=== PATIENT | male | born 1950 | race Caucasian/White ===

== ENCOUNTER → 2017-01-05 | Day surgery (SDC) | payer MEDICARE, OTHER ==
[~2017-01-05] MED LIST: ASPIRIN EC81 M1 PO; ASPIRIN81 M2 PO; B COMPLEX1 EACH PO; DOCUSATE SODIU100 MG PO; FISH OIL 1,2001 CAP PO; FISH OIL 1,2001 EAC1 PO; FLOMAX0.4 M1 PO; GLUCOSAMINE &1 EAC1 PO; MACROBID100 MG PO; NON-ASPIRIN PA325 M1 PO; VITAMIN D1000 UNI1 PO
--- NOTE | ~2017-01-05 | OR ---
Unit #: [id number] #: [id number] Patient: ADOLFO EUCEDA [id number] [facility] [address] [facility] [place] [facility]. [place], [place] [address] [id number] MR#: [id number] NAME: ADOLFO EUCEDA ROOM: Date of Procedure: 01/05/2017 Admission Date: 01/05/2017 Surgeon: Tyshawn Ly M.D. : 1950 Attending Physician: Tyshawn Ly M.D. Referring Physician: Tyshawn Ly M.D. Primary Care Physician: Kristel Menezes M.D. PROCEDURE OPERATIVE NOTE PREOPERATIVE DIAGNOSIS Uncomfortable left inguinal hernia and incarcerated umbilical hernia. POSTOPERATIVE DIAGNOSIS Incarcerated umbilical hernia and direct left inguinal hernia. PROCEDURE PERFORMED Open repair umbilical hernia with an 8 cm Ventralex patch and open repair of left inguinal hernia with PerFix plug mesh. ANESTHESIA General endotracheal. ESTIMATED BLOOD LOSS Less than 20 mL. INDICATION FOR STUDY The patient is a 66-year-old gentleman presenting to the office with a painful bulge in the left inguinal region that had been increasing over time. It was causing him discomfort at work. On examination he had a reducible left inguinal hernia. Right inguinal canal was normal. He also had an incidental incarcerated umbilical hernia. PROCEDURE The patient was admitted to [facility], positively identified and transported to the operating room. After induction of general endotracheal anesthesia he received IV antibiotics per SKIP protocol. His abdominal wall hair was clipped and he was prepped and draped in the usual sterile fashion. A transverse incision underneath the umbilicus was performed. The umbilical skin was from the hernia sac. The hernia sac was opened at the level of the fascia and the hernia sac and some incarcerated omentum were excised. I palpated through the defect and there were no other palpable defects. An 8 cm Ventralex patch was placed. It was secured circumferentially with 0 Ethibond interrupted sutures. Once the mesh was adequately positioned and secured and the fascia closed, 20 mL of 0.5% Marcaine were infiltrated in the fascia and soft tissue. An umbilicoplasty was performed. Soft tissue was closed with 3-0 Vicryl interrupted suture and the skin was reapproximated with 4-0 Monocryl running subcuticular closure and Dermabond skin adhesive. I then went to the left inguinal canal and an incision in the skin line was made over the left inguinal canal. I dissected down through the soft tissue, exposing external oblique aponeurosis. The aponeurosis direct had fibers to include the external ring. Ilioinguinal nerve was identified Unit #: [id number] #: [id number] Patient: ADOLFO EUCEDA and preserved. Core structure elevated from the floor of the inguinal canal. I carefully evaluated the spermatic cord and there was no indirect hernia sac. He had a large, but not incarcerated, direct hernia. Using 0 Ethibond interrupted sutures a Bassini type repair of the floor of the inguinal canal was performed from the conjoined tendon shelving agent inguinal ligament. Once the floor was closed, the internal ring was tightened up, Keyhole on-lay mesh was secured to the pubic tubercle and stretched across the inguinal canal and the tails were wrapped around the spermatic cord as it exited the internal ring. The mesh was secured to the muscular fascial tissues superior and lateral to the internal ring. The limbs were then secured with shelving agent into the ligament laterally. A relaxing incision was made in the rectus sheath and then the medial edge of the mesh was secured to the rectus sheath. The cord was placed back in the anatomic position. Ten mL of local anesthetic were infiltrated. The external oblique aponeurosis was reapproximated. The soft tissue was closed with 2-0 Vicryl running suture. The skin was reapproximated with 4-0 Monocryl running subcuticular closure and Dermabond skin adhesive. Sponge and needle counts were corrected times three. The patient tolerated the procedure well and was transported to recovery in stable condition. Findings and postoperative instructions were discussed with his son. Dictated by... Fish Astorga TD: 01/05/2017 13:03 JOB #: [id number] PROCEDURE OPERATIVE NOTE Page 1 of 1 X Tyshawn Ly MD X PROCEDURE OPERATIVE NOTE
--- NOTE | ~2017-01-05 | EKG ---
PATIENT: ADOLFO EUCEDA UNIT #: [id number] Ventricular Rate: 56 BPM Atrial Rate: 56 BPM P-R Interval: 212 ms QRS Duration: 86 ms Q-T Interval: 404 ms QTC Calculation(Bezet): 389 ms P [place]: 15 degrees Calculated R [place]: 16 degrees Calculated T [place]: 48 degrees Diagnosis Line: Sinus bradycardia with 1st degree A-V block Diagnosis Line: Septal infarct , age undetermined Diagnosis Line: Abnormal ECG Diagnosis Line: No previous ECGs available Diagnosis Line: Confirmed by SHIRIN AYON MD ([id number]) on Diagnosis Line: 01/05/2017 4:38:29 PM INTERPRETING MD: GABO PRADO
[2017-01-05 08:33] LABS: BASOPHIL% 0.8 % (0-2.5); EOSINOPHIL# 0.2 X10e3 (0-0.7); EOSINOPHIL% 3.7 % (0.0-7.0); HEMOGLOBIN 15.6 gm/dL (13.0-16.0); LYMPHOCYTE# 1.4 X10e3 (1.0-3.5); LYMPHOCYTE% 32.4 % (17.0-45.0); MEAN CELL VOLUME 97.1 FL (83-96); MEAN CORPUSCULAR HEMOGLOBIN 32.9 PG (28-34); MEAN CORPUSCULAR HGB CONC 33.9 g/dL (30-36); MEAN PLATELET VOLUME 7.8 FL (6.5-11.5); MONOCYTE# 0.5 X10e3 (0-1.0); MONOCYTE% 10.5 % (3.0-12.0); NEUTROPHIL# 2.3 X10e3 (1.5-7.1); NEUTROPHIL% 52.6 % (40-75); PLATELET COUNT 180 X10e3 (140-420); RED BLOOD COUNT 4.74 X10e (3.90-5.60); RED CELL DISTRIBUTION WIDTH 13.8 % (11.0-15.5); WHITE BLOOD COUNT 4.3 X10e3 (4.0-10.5)
[2017-01-05 08:34] LABS: DIFF IND NO
[2017-01-05 08:56] LABS: BUN/CREATININE RATIO 21.25; CALCIUM SERUM 9.1 mg/dL (8.4-10.2); CREATININE SERUM 0.8 mg/dL (0.6-1.4); GLOM FILT RATE Estimated 93.1 mL/min (>60); POTASSIUM 4.1 mmol/L (3.5-5.1)
== END | disposition home or self-care (01) ==
LOC: CSUR 07:45
PROVIDERS: Specialist
DX: K42.0 Umbilical hernia with obstruction, without gangrene (principal); K40.90 Unilateral inguinal hernia, without obstruction or gangrene, not specified as recurrent; I10 Essential (primary) hypertension; Z85.820 Personal history of malignant melanoma of skin; Z87.891 Personal history of nicotine dependence; Z79.82 Long term (current) use of aspirin; Z79.899 Other long term (current) drug therapy
CPT/HCPCS: 80048; 85025; 93005; C1781; J0330; J0690; J1885; J2250; J2405; J2710; J3010

== ENCOUNTER 2017-01-22 04:50 | Inpatient (IN) | payer MEDICARE, OTHER ==
--- NOTE | ~2017-01-22 | CO ---
Unit #: [id number] #: [id number] Patient: ADOLFO EUCEDA [id number] [facility]. [place], [place] [address] [id number] I MR#: [id number] NAME: ADOLFO EUCEDA ROOM: 55 Age: 67 Sex: M Admission Date: 01/22/2017 : 1950 Attending Physician: Barbara Vega M.D. Primary Care Physician: Kristel Menezes M.D. Consultation Date: 01/22/2017 CONSULTATION REPORT REASON FOR CONSULTATION Acute renal failure and massive postoperative urinary retention. HISTORY OF PRESENT ILLNESS This 66-year-old man was transferred after initial evaluation in [facility] early this morning for abdominal pain and elevated creatinine. He had a left plug mesh inguinal herniorrhaphy and umbilical hernia repair on 01/05/2017 and was discharged home only to have progressive small frequent urinations and dribbling. He was taking hydrocodone. He did note abdominal distention and ultimately presented for evaluation where he was noted to have initially a creatinine of 26 and potassium of 8 according to the record. Reported 5.8 L was drained after initial Sawyer catheter placement and this was initially bloody. He immediately reported improvement. CT reportedly showed bilateral hydronephrosis without stones. His father had a TUR of prostate, but he has had no significant pre-hospital symptoms himself. He has typically nocturia x1. No daytime frequency, urgency, hesitancy, or intermittency, although possibly occasional trouble emptying. He reports normal PSAs with primary care. He has no history of gross hematuria, urinary infection, or stone disease. He smoked for about 10 years in his youth, not heavily. PAST MEDICAL HISTORY PAST SURGICAL HISTORY Herniorrhaphies and melanoma excisions. MEDICATIONS On admission, low-dose aspirin, fish oil, vitamins. ALLERGIES None known. FAMILY HISTORY Negative for prostate cancer. SOCIAL HISTORY Nonsmoker as noted. REVIEW OF SYSTEMS Some loose stool from postoperative cathartics and as per HPI, otherwise negative except system review. Unit #: [id number] #: [id number] Patient: ADOLFO EUCEDA PHYSICAL EXAMINATION GENERAL: The patient is healthy appearing, pleasant, alert, sitting up in his chair with his catheter draining yellow, but blood-tinged urine. ABDOMEN: Normal postoperative, somewhat ecchymotic, well-healing incisional scars. : Phallus normal. Testes and epididymides normal descended. Digital exam; normal anus and sphincter tone. 40 g, benign. DIAGNOSTIC STUDIES LABORATORY RESULTS: Creatinine 6.7 at this time down from 9.6 just 3 hours prior, BUN 93, potassium 5.2. Liver function tests are normal. Hemoglobin 14.1, WBC 7.9. Urinalysis; innumerable rbc's, 5 to 10 wbc's, no bacteria. Urine culture has been sent. IMPRESSION 1. Sustained subacute urinary retention multifactorial postoperative with secondary dramatic obstructive acute kidney injury. Fortunately, a rapid reversal of renal indices with catheter drainage is occurring and he appears to have suffered no important metabolic complications. 2. Benign prostatic hypertrophy with no pre-hospital symptoms suggests a transurethral resection of prostate would be overly aggressive at this point, but certainly with medical management, the patient will need to be watched closely especially given the possibility of bladder injury from such severe distention. PLAN Sawyer to remain until at least jai renal indices and at least 3 additional days. We will start tamsulosin b.i.d. tomorrow. We will follow for timing of voiding trial and plan. Close followup with postvoid residuals initially. Thank you, Cherelle Chavez and Barbara for the consultation. Dictated by... Tyshawn Logan M.D. [facility]/ashish TD: 01/23/2017 05:08 JOB #: [id number] Cherelle Friedman M.D. CONSULTATION REPORT Page 1 of 1 X Tyshawn Logan MD CONSULTATION REPORT
--- NOTE | ~2017-01-22 | EKG ---
PATIENT: ADOLFO EUCEDA UNIT #: [id number] Ventricular Rate: 57 BPM Atrial Rate: 57 BPM P-R Interval: 186 ms QRS Duration: 70 ms Q-T Interval: 434 ms QTC Calculation(Bezet): 422 ms P [place]: 59 degrees Calculated R [place]: 39 degrees Calculated T [place]: 56 degrees Diagnosis Line: Sinus bradycardia Diagnosis Line: Possible Left atrial enlargement Diagnosis Line: Septal infarct (cited on or before 05-JAN-2017) Diagnosis Line: Abnormal ECG Diagnosis Line: When compared with ECG of 05-JAN-2017 08:26, Diagnosis Line: No significant change was found Diagnosis Line: Confirmed by SHIRIN AYON MD ([id number]) on Diagnosis Line: 01/23/2017 4:24:28 PM INTERPRETING MD: GABO PRADO
--- NOTE | ~2017-01-22 | HP ---
Unit #: [id number] #: [id number] Patient: ADOLFO HANSEN [id number] [facility]. [place], [place] [address] [id number] I MR#: [id number] NAME: ADOLFO HANSEN ROOM: 557 Age: 66 Sex: M Admission Date: 01/22/2017 : 1950 Attending Physician: Barbara Vega M.D. Primary Care Physician: Kristel Menezes M.D. HISTORY AND PHYSICAL CHIEF COMPLAINT Abdominal pain, abnormal creatinine. HISTORY OF PRESENT ILLNESS Mr. Hansen is a really nice 66-year-old male who presents to the ER for above. The patient underwent elective left inguinal hernia repair with subsequent plug mesh and open repair of umbilical hernia on January 05, 2017, per Dr. Ly. The patient states he was discharged home the same day. Beginning the day of surgery and for the two weeks postop, the patient has had increasing difficulty urinating and using the restroom. He was initially taking hydrocodone at home for the pain associated with the surgery, although he states the pain was not severe and he was concerned perhaps hydrocodone was contributing to his symptoms, thus, he stopped using it. He started taking Senna S and had loose stools and then stopped taking this as well. However, he noticed he was still having difficulty urinating. He would strain to urinate and had minimal urine output. He denies any episodes of incontinence. He was seen in followup by Dr. Ly as an outpatient but, at that followup, everything appeared to be stable. However, the patient developed increasing fatigue, poor appetite, poor taste, abdominal distension and subsequently presented to [facility] emergency department last night. Upon presentation, the patient was mildly hypertensive with a blood pressure of 160 to 170 systolic. Blood work revealed a creatinine of 26 in addition to some hyperkalemia with a potassium of 8. Sodium was normal. He was also found to have a high metabolic acidosis with a bicarbonate of 7. He was given calcium gluconate, dextrose, insulin, Albuterol and potassium is now down to 5.7. He was referred here for further evaluation. The patient states his abdominal pain is significantly improved after placement of Sawyer catheter in the emergency department at [facility]. The patient had 5,800 mL of urine come out immediately upon placing a Sawyer catheter, all of which was bloody. The patient states his abdominal pain and distension are significantly improved but he is still complaining of a lot of fatigue and just feeling overall in malaise. The patient denies any urinary trouble prior to surgery. He denies any nocturia prior to surgery. I will note a CT scan of the abdomen and pelvis was done ini the emergency department and revealed some BPH, bilateral hydronephrosis and bilateral hydroureter but there was no evidence of obstructive stone. PAST MEDICAL HISTORY Melanoma status post excision x2. PAST SURGICAL HISTORY 1. Melanoma excision x2. 2. Open repair of umbilical hernia with 8 cm Ventralex patch on January 05, Unit #: [id number] #: [id number] Patient: ADOLFO HANSEN 2016. 3. Open repair of left inguinal hernia with PerFix plug mesh on January 05, 2017. These were done by Dr. Ly. SOCIAL HISTORY The patient does have an approximately 10 to 12 year pack year history of smoking but quit about 35 to 40 years ago. No alcohol use. No illicit drug use. He works in [email or web address]. He does have a son who is not present during examination. FAMILY HISTORY Coronary artery disease in patient's father. The patient's father from acute leukemia. Mom is age 90 and in good health, according to the patient. ALLERGIES No known drug allergies. HOME MEDICATIONS 1. Aspirin 81 mg daily. 2. Fish oil 1,000 mg daily. 3. A daily multivitamin. 4. The patient was also taking vitamin D. However, he states that he is not taking any of these medications since surgery. He denies any [id number] NSAID use. REVIEW OF SYSTEMS Generalized malaise. He had been gaining weight over the last several days but again had significant urinary retention. He has had poor appetite and poor taste. He denies any chest pain. He denies any nausea or vomiting. He denies any reflux. He denies any hematuria prior to the onset of symptoms. He has not had dysuria but has had significant decreased urine output. No new rashes. No falls. No tingling, numbness of extremities or face. Otherwise, a 10-point review of systems is reviewed and is negative. PHYSICAL EXAMINATION GENERAL APPEARANCE: Patient is awake. He is alert. He is oriented x3 and very pleasant. VITAL SIGNS: Please refer to chart. HEENT: Pupils equally round and reactive to light bilaterally. Anicteric sclerae. No conjunctival pallor. Oropharynx is significantly dry mucous membranes bilaterally. No erythema or exudate. NECK: Supple. No lymphadenopathy. No thyromegaly. No JVD. HEART: Regular rate and rhythm without murmur, rub or gallop. LUNGS: Clear to auscultation bilaterally without wheezes, rhonchi or crackles. ABDOMEN: Soft and mildly tender particularly over the bladder but without guarding or rebound. It is nondistended. Positive bowel sounds. GENITOURINARY: Normal appearing testicles and penis. The patient does have a Sawyer catheter in place draining bright red urine. EXTREMITIES: No cyanosis, clubbing or edema. Pedal pulses (1) . SKIN: Warm, moist, is without rash. There is bruising over the right and left lower quadrants of the skin. The incision site for the ventral hernia repair and the right inguinal hernia repair, however, are intact Unit #: [id number] #: [id number] Patient: ADOLFO HANSEN without any drainage. NEUROLOGIC: Cranial nerves II-XII intact. Sensation, strength and deep tendon reflexes are grossly normal. MUSCULOSKELETAL: No significant joint abnormalities noted upon examination. PSYCHIATRIC: Again, alert and oriented x3. No suicidal or homicidal ideation. DIAGNOSTIC STUDIES LABORATORY: Lab work done at [facility], namely CBC, reveals a WBC count of 7.2, hemoglobin 13.4, platelet count 239,000. Differential reveals 86% neutrophils. CMP at that time reveals a sodium of 142, potassium of 8 initially at 12:40 a.m., chloride 109, bicarb 7, BUN 195, creatinine 26, glucose 92. LFTs were normal. AST was low at 10. Repeat potassium done at approximately 3:30 a.m. was down to 5.7 but the rest of the panel was not repeated. Lipase was 202. Magnesium 2.9. proBNP 464. Urinalysis revealed a large amount of occult blood but was otherwise negative for infection with trace bacteria. IMAGING: CT scan of the abdomen and pelvis without IV contrast done in the emergency department at [facility] reveals moderate bilateral hydronephrosis and hydroureter without radiopaque obstructive stone. There is a mild amount of stranding around the rectum and moderate bladder wall thickening. A posterior bladder diverticulum is noted and mild enlargement of the prostate was noted. CARDIOVASCULAR: EKG done here since presentation reveals normal sinus rhythm. QT interval 422. There is a Q wave present in V1 and V2. No acute ST or T wave abnormalities, however. ASSESSMENT 1. Acute on chronic urinary retention postoperatively since January 05, 2017, question anesthesia induced now status post Sawyer catheter placement with 5,000 mL of urine. 2. Acute kidney injury secondary to urinary retention. 3. High anion gap metabolic acidosis likely uremic in origin. 4. Hematuria likely secondary to bladder distension. 5. Benign prostatic hypertrophy. 6. Recent ventral and left inguinal hernia repair. 7. Abnormal EKG. 8. Hyperkalemia with repeat blood work pending. PLAN 1. We will admit patient to inpatient on telemetry given his hyperkalemia. 2. We will consult Urology regarding patient's urinary retention. We will continue Sawyer catheter for now and place on IV fluids given I anticipate he will have a significant postobstructive diuresis. We will only provide clears for now until we determine whether there is any urologic procedures planned. 3. We will consult Dr. Zamarripa regarding patient's acute kidney injury given I anticipate he will develop some electrolyte abnormalities as his creatinine, hopefully, will continue to improve. We will obtain spot urine sodium, urine creatinine, urine eosinophils and BMPs every six hours. 4. We will follow metabolic acidosis. IV fluids will contain bicarb and, of course, these can be adjusted per Renal's recommendation. 5. We will monitor hematuria as well. We will obtain urine culture. Unit #: [id number] #: [id number] Patient: ADOLFO HANSEN 6. I will ask Dr. Ly to follow the patient given his recent ventral and left inguinal hernia repair, though these appear to be healing well without any complication from surgery. 7. SCDs for DVT prophylaxis for now given his hematuria. Dictated by Barbara Vega M.D. [facility]/christian TD: 01/22/2017 10:46 JOB #: [id number] HISTORY AND PHYSICAL Page 1 of 1 X Barbara Vega MD X HISTORY AND PHYSICAL
--- NOTE | ~2017-01-22 | DS ---
Unit #: [id number] #: [id number] Patient: ADOLFO HANSEN [id number] [place], [place] [address] [id number] MR#: [id number] NAME: ADOLFO HANSEN ROOM: 55 Age: 67 Sex: M Admission Date: 01/22/2017 : 1950 Discharge Date: 01/24/2017 Attending Physician: Barbara Vega M.D. Primary Care Physician: Kristel Menezes M.D. DISCHARGE SUMMARY PRINCIPAL DIAGNOSES 1. Acute kidney injury secondary to obstructive uropathy: Discharge creatinine 0.9. 2. Acute urinary retention following anesthesia on January 05, 2017, now status post Sawyer catheter placement. 3. Hyperkalemia secondary to acute kidney injury, now resolved. 4. High anion gap metabolic acidosis secondary to uremia, now resolved. 5. Hematuria secondary to Sawyer catheter trauma. 6. Mild hyperkalemia, now resolved. 7. Hypomagnesemia. 8. Hypophosphatemia. 9. Mild protein malnutrition. 10. Recent left inguinal and ventral hernia repair. CONSULTANTS 1. Dr. Logan - Urology. 2. Dr. Zamarripa - Nephrology. PROCEDURES None. CLINICAL HISTORY/HOSPITAL COURSE Mr. Hansen is a very nice 67-year-old male who initially presented to [facility] emergency department with abdominal pain and was found to have a creatinine of 26. The patient had a Sawyer catheter placed at [facility] with immediate removal of 6 L of urine. He was transferred to this facility given he had recently undergone hernia repair and has had bladder symptoms at that time. Please refer to H and P for further details. The patient was maintained on Sawyer catheter and Dr. Logan was consulted. Patient continued to have significant diuresis for which he was placed on IV fluids. I discussed the case with Dr. Logan's partner, Dr. Gonzalez, earlier today and, given the patient had about two weeks of urinary retention, the plan is for him to be discharged home with a Sawyer catheter, for patient to followup with Dr. Logan later this week in the office at which time Sawyer catheter can be removed and urodynamic studies can be done. I will note patient does have some BPH noted on CT scan done at [facility]. He has been placed on Flomax. He had no urinary symptoms prior to surgery and perhaps this is anesthesia-induced. Again, further studies to be done as an outpatient. As noted above, the patient has significantly elevated creatinine upon presentation. However, will place on a Sawyer catheter. Creatinine is now Unit #: [id number] #: [id number] Patient: ADOLFO HANSEN completely normalized at 0.9. Associated acidosis and electrolyte abnormalities have been corrected under the care of nephrology. The patient is otherwise today clinically stable and will be discharged home again with Sawyer catheter. DISCHARGE CONDITION Stable. DISCHARGE STATUS Discharge to home with Sawyer catheter. DISCHARGE MEDICATIONS 1. Flomax 0.4 mg b.i.d. 2. Glucosamine and chondroitin, one tablet daily. 3. Aspirin 81 mg daily. 4. Vitamin B complex, one tablet daily. 5. Vitamin D 1000 units p.o. daily. 6. Fish oil 1200 mg daily. DISCHARGE INSTRUCTIONS Patient instructed to follow a regular diet. He can increase his activity as tolerated. Again, will maintain Sawyer catheter. FOLLOWUP The patient will follow up with Dr. Logan for appointment later the week of January 25 and will need urodynamic studies in the office. Time spent on discharge - 36 minutes. Dictated by... Barbara Vega M.D. [facility]/luis enrique TD: 01/25/2017 08:20 JOB #: [id number] DISCHARGE SUMMARY Page 1 of 1 X Barbara Vega MD X DISCHARGE SUMMARY
--- NOTE | ~2017-01-22 | CO ---
Unit #: [id number] #: [id number] Patient: ADOLFO HANSEN [id number] [facility] [address] [facility]. [place], [place] [address] [id number] I MR#: [id number] NAME: ADOLFO HANSEN ROOM: 557 Age: 67 Sex: M Admission Date: 01/22/2017 : 1950 Attending Physician: Barbara Vega M.D. Primary Care Physician: Kristel Menezes M.D. Consultation Date: 01/22/2017 CONSULTATION REPORT REASON FOR CONSULTATION Acute kidney injury and hyperkalemia. HISTORY OF PRESENT ILLNESS Mr. Hansen is a 66-year-old gentleman, currently confused, who is status post left inguinal and umbilical hernia repair here at [facility] on 01/05/2017. Again, the patient is confused this morning and family is not present. Most of the history was obtained from the chart. Following the surgery, the patient apparently has been having trouble with urination. He does not take much in the way of medications at home and was using some hydrocodone for pain. Apparently, he became more and more weak and fatigued and his appetite worsened. He denied to me this morning any nausea or vomiting. He also apparently developed some abdominal distention. Last night, he presented to the emergency room at [facility] with these complaints and was found to have grossly abnormal labs with a BUN and creatinine of 195 and 2.6 with a potassium of 8 and a bicarb of just 7. He was treated medically for the hyperkalemia. CT scan revealed urinary retention and hydronephrosis and he had a Sawyer catheter placed and it has drained almost 6 L since that was placed according to the notes. His urine is bloody. He denies any chest pain or shortness of breath to me. His abdominal discomfort is better after the catheter placement. No fevers or chills. He denies the use of any NSAIDs at home. PAST MEDICAL HISTORY Significant for history of melanoma. PAST SURGICAL HISTORY Melanoma excision x2 and then the recent hernia repairs. HOME MEDICATIONS Hydrocodone p.r.n. Prior to the surgery, he was taking baby aspirin, fish oil, glucosamine, chondroitin sulfate, and some vitamins. ALLERGIES He has no known drug allergies. FAMILY HISTORY There is a family history of heart disease and leukemia. No family history of kidney disease or dialysis. SOCIAL HISTORY The patient quit smoking many years ago. He drinks alcohol socially. No drug use. He works at [employer]. Unit #: [id number] #: [id number] Patient: ADOLFO HANSEN REVIEW OF SYSTEMS A complete 12-point review of systems was attempted, but simply difficult to obtain due to his mild confusion. He denies any headaches or dizziness. No nosebleed. He does complain of a dry mouth. No chest pain or palpitations. No cough or hemoptysis. No bright red blood per rectum or melena. He is noted to have some swelling. No rashes or itching. No night sweats or hot flashes. No intolerance to heat or cold. No other bleeding other than hematuria. Unless otherwise indicated, the review of systems was negative. PHYSICAL EXAMINATION VITAL SIGNS: Vitals here are pending and defer you to the chart once they were finalized. The only thing at this point is a pulse of 57. GENERAL: This is a somewhat confused 66-year-old gentleman, very pleasant, lying nearly flat, in no acute distress. HEENT: Head is atraumatic and normocephalic. Eyes show pink conjunctivae with no scleral icterus. No nasal drainage or nosebleed. Oropharynx is dry. No thrush. NECK: Shows no rigidity, no JVD. HEART: Bradycardic, but regular with no murmur or rub appreciated. LUNGS: Clear with no wheezing or rhonchi. Breathing is nonlabored. ABDOMEN: Soft with some very mild postop tenderness. Bowel sounds are present. He does have healing incisions from the hernia repair. No bladder distention at this time. EXTREMITIES: No lower extremity clubbing or cyanosis. He does have 1+ ankle edema bilaterally. SKIN: Dry without rashes. GENITOURINARY: Sawyer catheter is in place with bloody urine. MUSCULOSKELETAL: No joint effusions noted. NEUROLOGICAL: Cranial nerves are grossly intact with no gross motor deficits. LYMPHATIC: There is no neck or cervical lymphadenopathy. PSYCHIATRIC: Mood and affect appeared normal, but again he does seem to be a little confused. DIAGNOSTIC STUDIES LABORATORY RESULTS: Labs that are back so far here at [facility]. [facility], INR was 1.1. CBC was unremarkable with a hemoglobin of 14 and platelet count 252. Initial chemistry at [facility] showed a sodium of 142, potassium of 8, chloride 109, bicarb 7, glucose 92, BUN 195, creatinine 2.6. Notes on admissions state that his potassium had come down to 5.7 before [facility]. Again, repeat chemistry here is pending. Urinalysis there at [facility] did show large blood in the absence of any signs of infection with no protein present. CBC at [facility] was also unremarkable. To confirm, I did find at 3:30 in the morning, potassium level of 5.7 down from 8. IMAGING STUDIES: I do see a CT scan report that showed moderate bilateral hydronephrosis likely secondary to bladder outlet obstruction. No obstructive stones seen. ASSESSMENT AND PLAN 1. Acute kidney injury. This looks to be due to obstructive uropathy and a Sawyer catheter has been placed with excellent urine output. We are awaiting his repeat chemistry and hope for improvement, otherwise we may have to consider dialysis for his renal insufficiency and electrolyte abnormalities. We will continue him on some IV fluids as we would expect a postobstructive diuresis. Labs are ordered every 6 hours by Unit #: [id number] #: [id number] Patient: ADOLFO HANSEN and we will have those called to us. 2. Hyperkalemia. Recheck was better after treatment in the emergency room and we will follow up his chemistry here. 3. Metabolic acidosis, which is anion gap in nature. This is due to his renal insufficiency and I will be putting him on a bicarbonate drip and monitoring his acidosis levels. 4. Hypertension. p.r.n. hydralazine has been ordered. This is likely due to his renal insufficiency unless he has underlying undiagnosed hypertension. 5. Obstructive uropathy with Sawyer catheter in place, now on Flomax with Urology consult in place. 6. Hematuria. Cultures pending, but his white blood cell count is normal, and I do not see any documentation of a fever. 7. Status post hernia repair with Surgery due to see. I would like to thank Dr. Friedman for this consult and the opportunity to participate in evaluation and care of Mr. Hansen. Dictated by... Misael Zamarripa Jr., M.D. JARRED/ashish TD: 01/23/2017 22:01 JOB #: [id number] CONSULTATION REPORT Page 1 of 1 X Misael Zamarripa MD CONSULTATION REPORT
[~2017-01-22 04:50] MED LIST changes: -ASPIRIN81 M2 PO; -B COMPLEX1 EACH PO; -DOCUSATE SODIU100 MG PO; -FISH OIL 1,2001 CAP PO; -FLOMAX0.4 M1 PO; -GLUCOSAMINE &1 EAC1 PO; -MACROBID100 MG PO; -NON-ASPIRIN PA325 M1 PO; -VITAMIN D1000 UNI1 PO
[2017-01-22 11:13] LABS: HEMATOCRIT 42.6 % (38.0-50.0); HEMOGLOBIN 14.1 gm/dL (13.0-16.0); MEAN CELL VOLUME 98.7 FL (83-96); MEAN CORPUSCULAR HEMOGLOBIN 32.7 PG (28-34); MEAN CORPUSCULAR HGB CONC 33.1 g/dL (30-36); MEAN PLATELET VOLUME 8.1 FL (6.5-11.5); RED BLOOD COUNT 4.31 X10e (3.90-5.60); RED CELL DISTRIBUTION WIDTH 13.5 % (11.0-15.5); WHITE BLOOD COUNT 7.9 X10e3 (4.0-10.5)
[2017-01-22 11:26] LABS: INR 1.1; PARTIAL THROMBOPLASTIN TIME 30.8 SECONDS (23.5-31.3)
[2017-01-22 12:04] LABS: ALBUMIN SERUM 3.9 g/dL (3.5-5.0); BILIRUBIN,TOTAL 0.8 mg/dL (0.2-2.0); CALCIUM SERUM 9.7 mg/dL (8.4-10.2); CREATININE SERUM 9.6 mg/dL (0.6-1.4); GLOM FILT RATE Estimated 5.1 mL/min (>60); MAGNESIUM 2.4 mg/dL (1.6-3.0); POTASSIUM 5.1 mmol/L (3.5-5.1); PROTEIN TOTAL SERUM 7.3 g/dL (6.0-8.3)
[2017-01-22 12:08] LABS: BUN/CREATININE RATIO 12.18
[2017-01-22 12:27] LABS: URINE APPEARANCE CLEAR; URINE BILIRUBIN NEG (NEG); URINE BLOOD 3+ (NEG); URINE COLOR RED; URINE GLUCOSE NEG (NEG); URINE KETONE 1+ (NEG); URINE LEUKOCYTE ESTERASE TRACE (NEG); URINE NITRATE NEG (NEG); URINE PROTEIN NEG (NEG); URINE SPECIFIC GRAVITY 1.015 (1.003-1.035)
[2017-01-22 12:30] LABS: URBCS1 AUWI INNUM /[HPF] (0-2); URINE BACTERIA AUWI NEG (NEGATIVE); URINE SQUAMOUS EPITHELIAL CELL NONE SEEN /[HPF]
[2017-01-22 12:43] LABS: CREATININE,RANDOM URINE 120 mg/dL; SODIUM URINE RANDOM 94 mmol/L
[2017-01-22 14:53] LABS: BUN/CREATININE RATIO 13.88; CALCIUM SERUM 9.6 mg/dL (8.4-10.2); CREATININE SERUM 6.7 mg/dL (0.6-1.4); GLOM FILT RATE Estimated 7.8 mL/min (>60); POTASSIUM 5.2 mmol/L (3.5-5.1)
[2017-01-22 20:21] LABS: BUN/CREATININE RATIO 17.35; CALCIUM SERUM 9.4 mg/dL (8.4-10.2); GLOM FILT RATE Estimated 17.8 mL/min (>60); POTASSIUM 3.9 mmol/L (3.5-5.1)
[2017-01-22 20:22] LABS: CREATININE SERUM 3.4 mg/dL (0.6-1.4)
[2017-01-23 06:28] LABS: HEMOGLOBIN 13.5 gm/dL (13.0-16.0); MEAN CELL VOLUME 96.1 FL (83-96); MEAN CORPUSCULAR HEMOGLOBIN 32.3 PG (28-34); MEAN CORPUSCULAR HGB CONC 33.6 g/dL (30-36); MEAN PLATELET VOLUME 8.1 FL (6.5-11.5); RED BLOOD COUNT 4.17 X10e (3.90-5.60); RED CELL DISTRIBUTION WIDTH 13.5 % (11.0-15.5); WHITE BLOOD COUNT 6.1 X10e3 (4.0-10.5)
[2017-01-23 07:16] LABS: ALBUMIN SERUM 3.4 g/dL (3.5-5.0); BILIRUBIN,TOTAL 1.2 mg/dL (0.2-2.0); BUN/CREATININE RATIO 18.46; CALCIUM SERUM 9.2 mg/dL (8.4-10.2); GLOM FILT RATE Estimated 56.9 mL/min (>60); POTASSIUM 3.8 mmol/L (3.5-5.1); PROTEIN TOTAL SERUM 6.3 g/dL (6.0-8.3)
[2017-01-23 07:20] LABS: CREATININE SERUM 1.3 mg/dL (0.6-1.4)
[2017-01-23 15:47] LABS: BUN/CREATININE RATIO 18.88; CALCIUM SERUM 9.1 mg/dL (8.4-10.2); CREATININE SERUM 0.9 mg/dL (0.6-1.4); GLOM FILT RATE Estimated 88.7 mL/min (>60); POTASSIUM 3.5 mmol/L (3.5-5.1)
[2017-01-24 06:42] LABS: BUN/CREATININE RATIO 11.11; CALCIUM SERUM 8.6 mg/dL (8.4-10.2); CREATININE SERUM 0.9 mg/dL (0.6-1.4); GLOM FILT RATE Estimated 88.1 mL/min (>60); MAGNESIUM 1.4 mg/dL (1.6-3.0); PHOSPHOROUS 1.6 mg/dL (2.5-4.6); POTASSIUM 3.5 mmol/L (3.5-5.1)
== END 2017-01-24 18:38 | disposition home or self-care (01) | DRG 699 ==
LOC: CEDOF 04:50 → C5B 05:51 → CEDOF 07:24 → C5B 07:24
PROVIDERS: Internal Medicine; Internal Medicine Nephrology
DX: N32.0 Bladder-neck obstruction (principal); N17.9 Acute kidney failure, unspecified; E44.1 Mild protein-calorie malnutrition; T83.83XA Hemorrhage due to genitourinary prosthetic devices, implants and grafts, initial encounter; E83.42 Hypomagnesemia; N13.9 Obstructive and reflux uropathy, unspecified; N40.1 Benign prostatic hyperplasia with lower urinary tract symptoms; R33.8 Other retention of urine; E83.39 Other disorders of phosphorus metabolism; Z85.820 Personal history of malignant melanoma of skin; Z80.6 Family history of leukemia; Z79.82 Long term (current) use of aspirin
CPT/HCPCS: 80048; 80053; 81003; 82570; 83605; 83735; 84100; 84300; 85027; 85610; 85730; 87086; 89190; 93005; 97116; 97163; 97166; 97530; 97535; G8978-GP; G8979-GP; G8987-GO; G8988-GO; J0360; J3475; J7060

== ENCOUNTER 2017-02-02 19:10 | Inpatient (IN) | payer MEDICARE, OTHER ==
--- NOTE | ~2017-02-02 | CO ---
Unit #: [id number] #: [id number] Patient: ADOLFO HANSEN [id number] [facility] [address] [facility]. [place], [place] [address] [id number] I MR#: [id number] NAME: ADOLFO HANSEN ROOM: 228 Age: 67 Sex: M Admission Date: 02/03/2017 : 1950 Attending Physician: Cesar Way M.D. Primary Care Physician: Kristel Menezes M.D. Consultation Date: 02/03/2017 CONSULTATION REPORT REASON FOR CONSULT Acute kidney injury. HISTORY OF PRESENT ILLNESS Mr. Hansen is a pleasant 67-year-old white male whom we were asked to see for acute kidney injury with a creatinine upon admission of 8.1. This was accompanied by hyperkalemia and a metabolic acidosis. Mr. Hansen is familiar to me as I saw him back on the of this month for a similar presentation. At that time, he had a recent double hernia repair at [facility] on January 05 and had presented with difficulty urinating. At that time, he was found to have an obstructive uropathy with urinary retention and a Sawyer catheter placed and fluids started with full correction of his acute kidney injury at that time. He was sent home on Flomax and with a Sawyer catheter. The catheter was removed about a week ago as an outpatient and he, again, developed urinary retention prompting this admission due to outpatient hyperkalemia. According to Dr. Friedman's notes, a Sawyer catheter was placed and three liters immediately drained from the bladder. He is on IV fluids. He is eating with no nausea or vomiting. He denies any chest discomfort or shortness of breath. The urine is bloody. He did take a pain pill at home for a headache a day or so ago and does not remember the type of pill. PAST MEDICAL HISTORY Melanoma, BPH with urinary retention. PAST SURGICAL HISTORY Melanoma excision and hernia repairs. SOCIAL HISTORY The patient is a former smoker, social alcohol intake. No drug use. He works at a [employer]. FAMILY HISTORY Leukemia and heart disease. There is no family history of kidney issues. ALLERGIES He has no known drug allergies. HOME MEDICATIONS 1. Fish oil daily. 2. Vitamin D daily. 3. Baby aspirin daily. 4. Glucosamine chondroitin daily. 5. Vitamin B complex daily. Unit #: [id number] #: [id number] Patient: ADOLFO HANSEN 6. Flomax 0.4 mg twice a day. REVIEW OF SYSTEMS A complete 12-point review of systems was completed with the above findings. In addition, his headache is now resolved. He has not had any fevers or chills. No nose bleeds, sore throat or earache. No chest pain or palpitations. No cough, shortness of air or hemoptysis. No bright red blood per rectum or melena. No swelling. No rashes. No itching. No night sweats. No intolerance to heat or cold. No other bleeding issues. No recent weight changes. No neurologic changes. Unless otherwise indicated, the review of systems was negative. PHYSICAL EXAMINATION GENERAL APPEARANCE: This is a pleasant 67-year-old male who is alert and oriented, eating breakfast in no acute distress. VITAL SIGNS: The patient is afebrile. Pulse 70. Respiratory rate 18. Blood pressure 143/98, lowest was 135/93. HEENT: Head is atraumatic, normocephalic. Eyes show pink conjunctivae with no scleral icterus. No nasal drainage or nose bleed. Oropharynx is moist. No thrush. NECK: No rigidity. No JVD. HEART: Regular rate and rhythm with no murmurs, gallops or rubs appreciated. LUNGS: Clear with no wheezing or rhonchi. Breathing is not labored. ABDOMEN: Soft. Very mild tenderness around the old surgical hernia sites. Bowel sounds are present. Bladder is not distended. EXTREMITIES: No lower extremity clubbing, cyanosis or edema. SKIN: Dry with no rashes. GENITOURINARY: Sawyer catheter is in place with bloody urine. MUSCULOSKELETAL: No joint effusions. No CVA tenderness to palpation. NEUROLOGIC: Cranial nerves are intact with no focal deficits. LYMPHATIC: There is no neck, cervical lymphadenopathy. PSYCHIATRIC: Mood and affect appear normal. DIAGNOSTIC STUDIES LABORATORY: Chemistry this morning is pending. INR is 1.1. CBC is remarkable for a white count of 3.6. Urinalysis did show trace leukocytes, 0 to 2 RBCs with 5 to 10 whites. Culture is pending. Most recent chemistry from eight o'clock last night: Sodium 138, potassium 5.5, chloride 107, bicarb 19, glucose 92, BUN 97, creatinine 8.3. Prior to that, creatinine was 8.1. Again, the patient's kidney function had fully recovered at discharge on January 24 to 0.9. His creatinine last admission peaked at 9.6. ASSESSMENT AND PLAN 1. Acute kidney injury. The patient appears to have obstructive uropathy again and Sawyer catheter has been placed with good urine output thus far. We will continue fluids and monitor response. No dialysis is indicated at this time unless his hyperkalemia or acidosis would worsen. 2. Hyperkalemia. This appears to be trending down on the labs and I am waiting for recheck this morning. 3. Hematuria. Culture is pending. This is likely related to Sawyer placement. His aspirin is held. 4. Metabolic acidosis. We will continue sodium bicarbonate supplementation p.o. 5. BPH with catheter in place and possible TURP planned later this week per Dr. Logan. Unit #: [id number] #: [id number] Patient: ADOLFO HANSEN 6. Hypertension. The patient's blood pressure is a little high here this morning and this will need to be monitored. 7. Recent hernia repair. 8. I did discuss this case with Dr. Logan. I would like to thank Dr. Friedman for this consult and the opportunity to participate in evaluation and care of Mr. Hansen. Dictated by... Misael Zamarripa Jr. MRaphael. JARRED/christian TD: 02/03/2017 11:55 JOB #: [id number] CONSULTATION REPORT Page 1 of 1 X Misael Zamarripa MD X CONSULTATION REPORT
--- NOTE | ~2017-02-02 | DS ---
Unit #: [id number] #: [id number] Patient: ADOLFO EUCEDA [id number] [facility]. [address] [place], [place] [address] [id number] I MR#: [id number] NAME: ADOLFO EUCEDA ROOM: 228 Age: 67 Sex: M Admission Date: 02/03/2017 : 1950 Discharge Date: 02/04/2017 Attending Physician: Cesar Way M.D. Primary Care Physician: Kristel Menezes M.D. DISCHARGE SUMMARY SHORT STAY SUMMARY DIAGNOSIS ON ADMISSION Acute urinary retention. DIAGNOSES ON DISCHARGE 1. Acute kidney injury secondary to acute urinary retention, resolved. 2. Acute urinary retention. 3. Benign prostatic hypertrophy. CONSULTATIONS 1. Dr. Logan in urology consultation. 2. Dr. Zamarripa in renal consultation. HOSPITAL COURSE A 67-year-old patient was admitted to the hospital with acute kidney injury. Patient had acute urinary retention, and with Sawyer almost 2 liters of fluid was removed. Patient was seen by Dr. Logan in consultation who thought that the patient has BPH and will likely need TURP, which he is planning to do on an outpatient basis. He is advised to leave Sawyer catheter in. The patient's creatinine is back to normal now at 0.8 secondary to IV fluids. He is feeling much better today and is anxious to go home. RECOMMENDATIONS ON DISCHARGE 1. Condition is stable. 2. Activity is as tolerated. DISCHARGE MEDICATIONS 1. Flomax 0.4 mg p.o. b.i.d. 2. Macrobid 1 tablet p.o. b.i.d. for [address] Logan. 3. Tylenol 650 mg p.o. q.4 hours p.r.n. 4. Vitamin B complex 1 tablet p.o. daily. 5. Vitamin D 1,000 units p.o. daily. 6. Fish oil 1 capsule daily. 7. The patient's aspirin is being held because of TURP next week. FOLLOW-UP 1. Patient is advised to follow up with primary care physician in 1-2 weeks and follow up with Dr. Logan as recommended. 2. We will arrange home health regarding home safety assessment. NOTE: The plan was discussed in detail with the patient, who showed complete understanding. Patient was advised to call primary care physician or go to ER if his condition changes. Unit #: [id number] #: [id number] Patient: ADOLFO EUCEDA Dictated by.Fish Crews TD: 02/04/2017 13:54 JOB #: [id number] CC: Misael Zamarripa Jr., M.D. DISCHARGE SUMMARY Page [address] MD X DISCHARGE SUMMARY
--- NOTE | ~2017-02-02 | HP ---
Unit #: [id number] #: [id number] Patient: ADOLFO EUCEDA [id number] [address] [place], [place] [address] [id number] I MR#: [id number] NAME: ADOLFO EUCEDA ROOM: 228 Age: 67 Sex: M Admission Date: 02/03/2017 : 1950 Attending Physician: Cherelle Friedman M.D. Primary Care Physician: Kristel Menezes M.D. HISTORY AND PHYSICAL CHIEF COMPLAINT Acute kidney injury secondary to urinary retention from bladder outlet obstruction. HISTORY This pleasant 67-year-old male with BPH, is admitted for acute kidney injury. The patient was recently admitted 01/22 through 01/24/2017 for similar complaints. He underwent an elective left inguinal hernia repair earlier in the month, had difficulty urinating. Developed acute kidney injury secondary to urinary retention from bladder outlet obstruction requiring hospitalization here. This was treated conservatively with IV fluids and Sawyer catheter with resolution of acute kidney injury. He was discharged with a Sawyer in place which was discontinued after a few days. Currently does take Flomax. Notes nocturia, and difficulty completely emptying his bladder. He was seen yesterday by Dr. Logan and an ultrasound along with labs were performed. The patient was directed back to the emergency department due to abnormal labs. When he presented to this ER last evening, labs were consistent again with acute kidney injury. Sawyer catheter was placed and the patient had 3 L of urinary output immediately. Has received over 2 L of saline in the meantime. Currently feels comfortable. States he was experiencing some suprapubic discomfort prior to the Sawyer catheter being inserted which now has improved. PAST MEDICAL HISTORY 1. Melanoma, status post excision x2. 2. BPH with acute kidney injury due to urinary retention from bladder outlet obstruction requiring admission earlier this month. 3. Hernia repair x2. 4. Colonoscopy, one polyp was removed. ALLERGIES None. HOME MEDICATIONS 1. Flomax 0.4 mg b.i.d. 2. Vitamin D. 3. Aspirin 81 mg daily. 4. Glucosamine. 5. Vitamin B. 6. Fish oil. FAMILY HISTORY Unit #: [id number] #: [id number] Patient: ADOLFO EUCEDA Leukemia. SOCIAL HISTORY The patient lives alone. He smoked for 10-12 years but stopped smoking 40 years ago. Does not drink alcohol. REVIEW OF SYSTEMS Notable for nocturia, difficulty voiding urine, some suprapubic pressure, BPH, melanoma, above mentioned surgeries. All other systems were reviewed and are otherwise negative. PHYSICAL EXAMINATION GENERAL APPEARANCE: Very pleasant 67-year-old male, currently in no acute distress. VITAL SIGNS: Temperature 98.2, pulse 74, respirations 18, blood pressure 169/87. O2 saturation 100% on room air. HEENT: Eyes PERRLA. Extraocular muscles are intact. Pharynx is benign. NECK: Supple without adenopathy or thyromegaly. CHEST: Clear. CARDIAC: Normal S1 and S2 without S3, S4 or murmur. ABDOMEN: Bowel sounds are present. Healing abdominal incision. Nontender. No hepatosplenomegaly or masses. EXTREMITIES: Without clubbing, cyanosis or edema. Pedal pulses are present. NEUROLOGIC: The patient is awake, alert, oriented. Cranial nerves are intact. Equal strength throughout. DIAGNOSTIC STUDIES LABORATORY: Admission labs - hematocrit is 37.8, normal white count, platelet count. SMA-12 - BUN 97, creatinine 8.3, up from a BUN of 10, creatinine of 0.9 ten days ago. Potassium 5.5, CO2 19. Urinalysis - trace leukocyte esterase, 5-10 white cells, no bacteria. CARDIOVASCULAR: EKG - sinus rhythm, rate 65, normal appearing except for some poor R wave progression V1 through V3 which could be related to lead placement. ASSESSMENT 1. Acute kidney injury secondary to urinary retention from bladder outlet obstruction due to benign prostatic hypertrophy. 3 L of urine drained from the bladder after Sawyer catheter was placed. This is associated with mild hyperkalemia and metabolic acidosis. 2. Benign prostatic hypertrophy. 3. Melanoma excised. PLANS 1. IV fluids with bicarb, check frequent BMPs. Urology and nephrology to see again. 2. Hold aspirin. 3. SCDs for DVT prophylaxis. Dictated by Unit #: [id number] #: [id number] Patient: ADOLFO EUCEDA M.D. SAGE/luis enrique TD: 02/03/2017 05:37 JOB #: [id number] HISTORY AND PHYSICAL Page 1 of 1 X Cherelle Friedman MD HISTORY AND PHYSICAL
--- NOTE | ~2017-02-02 | CO ---
Unit #: [id number] #: [id number] Patient: ADOLFO EUCEDA [id number] [facility] [address] [facility]. [place], [place] [address] [id number] I MR#: [id number] NAME: ADOLFO EUCEDA ROOM: 228 Age: 67 Sex: M Admission Date: 02/03/2017 : 1950 Attending Physician: Cesar Way M.D. Primary Care Physician: Kristel Menezes M.D. Consultation Date: 02/03/2017 CONSULTATION REPORT REASON FOR CONSULTATION Recurrent acute renal failure and urinary retention. HISTORY This 67-year-old man was directed to the emergency department by me last night for Sawyer catheter placement and admission on the basis of followup laboratories. He had been seen at [facility] in consultation on January 22 for a similar presentation as documented on January 22. Three weeks following herniorrhaphy, he had presented with a creatinine of 26 and a potassium of 8 with nearly 6 L draining from his bladder and bilateral hydronephrosis on CT scan. Fortunately, his renal indices corrected dramatically quickly. As he had been highly symptomatic throughout the postoperative interval, I discussed that a TUR of prostate is usually done in this situation but perhaps was not necessary for him and we elected a close followup with medical management. Thus, he was discharged on high-dose tamsulosin. His catheter was removed in the office last week and in a followup telephone conversation, he thought he was voiding much better but one week followup laboratories yesterday were called for a potassium of 5.8. I determined his creatinine had risen to 8.1 and directed his re-admission. Overnight, he has done well with a Sawyer catheter, although some gross hematuria is noted. He has no other concerns. Once again, he reports normal PSAs with primary care. No prior history of gross hematuria, urinary infection, or stone disease and smoked only in his youth. PAST MEDICAL HISTORY Negative except for the surgeries below. PAST SURGICAL HISTORY 1. Left inguinal and umbilical herniorrhaphy with mesh. 2. Melanoma excisions. ADMISSION MEDICATIONS 1. Low-dose aspirin. 2. Fish oil. 3. Vitamins. ALLERGIES None known. FAMILY HISTORY Negative for prostate cancer. Unit #: [id number] #: [id number] Patient: ADOLFO EUCEDA SOCIAL HISTORY Nonsmoker. REVIEW OF SYSTEMS Negative except as above. PHYSICAL EXAMINATION VITAL SIGNS: Patient is afebrile with stable vital signs. Temperature currently 98.2, pulse 70, blood pressure 143/98, respirations 18. Height 5 feet 11 inches, weight 179 pounds. BMI 25. HEENT: Unremarkable. ABDOMEN: Flat, soft, nontender. No masses. Herniorrhaphy scar is healing well. GENITALIA: Phallus, testes, and epididymis normal. RECTAL: Digital exam not repeated but was indicated as 40 g and benign on last admission. DIAGNOSTIC STUDIES LABORATORY: Urinalysis does show 5-10 white cells and trace leukocyte esterase but is otherwise normal with no initial nitrites or red cells. BUN from last evening 97, creatinine 8.3, eGFR 6, potassium 5.5. Liver function tests normal. Hemoglobin 13.6. Urine culture is sent. IMAGING: CT scan from [place] was reviewed and showed a massive bladder with moderate bilateral hydronephrosis. A small stone in the left kidney about 6 mm and another 3 mm, similar 6 mm stone in the bladder. IMPRESSION Recurrent acute renal failure demonstrating failure of medical management for patient's postoperative urinary retention. Transurethral resection of prostate is indicated. Unfortunately, patient has unbeknownst to me continued on aspirin and will thus likely need to postpone until the end of next week transurethral resection of prostate. PLAN Will hold aspirin. Check a current PSA. Followup on urine culture. Discharge with Sawyer catheter when medically appropriate with plans for transurethral resection of prostate next week. Dictated by... Tyshawn Logan M.D. BRAYAN/riaz TD: 02/03/2017 12:14 JOB #: [id number] CC: Fish Hammer M.D. Unit #: [id number] #: [id number] Patient: ADOLFO EUCEDA CONSULTATION REPORT Page 1 of 1 X Tyshawn Logan MD X CONSULTATION REPORT
[2017-02-02 21:13] LABS: BUN/CREATININE RATIO 11.68; CALCIUM SERUM 9.3 mg/dL (8.4-10.2); CREATININE SERUM 8.3 mg/dL (0.6-1.4)
[2017-02-02 21:14] LABS: POTASSIUM 5.5 mmol/L (3.5-5.1)
[2017-02-02 23:15] LABS: URINE SOURCE CLEAN CATCH
[2017-02-02 23:19] LABS: URINE APPEARANCE CLEAR; URINE BILIRUBIN NEG (NEG); URINE BLOOD NEG (NEG); URINE COLOR YELLOW; URINE GLUCOSE NEG (NEG); URINE KETONE NEG (NEG); URINE LEUKOCYTE ESTERASE TRACE (NEG); URINE NITRATE NEG (NEG); URINE PH 5.5 (5-8); URINE PROTEIN NEG (NEG); URINE SPECIFIC GRAVITY 1.011 (1.003-1.035); URINE UROBILINOGEN 0.2 MG/DL (NEG)
[2017-02-02 23:20] LABS: BASOPHIL# 0.1 X10e3 (0-0.3); BASOPHIL% 1.2 % (0-2.5); EOSINOPHIL# 0.2 X10e3 (0-0.7); EOSINOPHIL% 2.9 % (0.0-7.0); HEMATOCRIT 37.8 % (38.0-50.0); HEMOGLOBIN 12.6 gm/dL (13.0-16.0); LYMPHOCYTE# 1.3 X10e3 (1.0-3.5); LYMPHOCYTE% 24.6 % (17.0-45.0); MEAN CELL VOLUME 96.3 FL (83-96); MEAN CORPUSCULAR HGB CONC 33.2 g/dL (30-36); MONOCYTE# 0.6 X10e3 (0-1.0); MONOCYTE% 10.5 % (3.0-12.0); NEUTROPHIL# 3.3 X10e3 (1.5-7.1); NEUTROPHIL% 60.8 % (40-75); PLATELET COUNT 173 X10e3 (140-420); RED BLOOD COUNT 3.93 X10e (3.90-5.60); RED CELL DISTRIBUTION WIDTH 13.3 % (11.0-15.5); WHITE BLOOD COUNT 5.5 X10e3 (4.0-10.5)
[2017-02-02 23:22] LABS: CULTURE INDICATED? YES; URBCS1 AUWI 0-2 /[HPF] (0-2); URINE BACTERIA AUWI NEG (NEGATIVE); URINE SQUAMOUS EPITHELIAL CELL NONE SEEN /[HPF]
[2017-02-02 23:24] LABS: DIFF IND NO
[2017-02-03 07:46] LABS: EOSINOPHIL# 0.2 X10e3 (0-0.7); EOSINOPHIL% 4.4 % (0.0-7.0); HEMATOCRIT 39.5 % (38.0-50.0); HEMOGLOBIN 13.6 gm/dL (13.0-16.0); LYMPHOCYTE# 1.1 X10e3 (1.0-3.5); LYMPHOCYTE% 29.4 % (17.0-45.0); MEAN CELL VOLUME 95.2 FL (83-96); MEAN CORPUSCULAR HEMOGLOBIN 32.7 PG (28-34); MEAN CORPUSCULAR HGB CONC 34.4 g/dL (30-36); MEAN PLATELET VOLUME 7.2 FL (6.5-11.5); MONOCYTE# 0.4 X10e3 (0-1.0); MONOCYTE% 10.5 % (3.0-12.0); NEUTROPHIL% 54.7 % (40-75); PLATELET COUNT 180 X10e3 (140-420); RED BLOOD COUNT 4.15 X10e (3.90-5.60); RED CELL DISTRIBUTION WIDTH 13.1 % (11.0-15.5); WHITE BLOOD COUNT 3.6 X10e3 (4.0-10.5)
[2017-02-03 07:51] LABS: DIFF IND NO
[2017-02-03 08:00] LABS: INR 1.1; PARTIAL THROMBOPLASTIN TIME 32.5 SECONDS (23.5-31.3); PROTHROMBIN TIME (PATIENT) 11.4 SECONDS (9.6-11.5)
[2017-02-03 08:14] LABS: BUN/CREATININE RATIO 20.4; CALCIUM SERUM 9.2 mg/dL (8.4-10.2); GLOM FILT RATE Estimated 25.6 mL/min (>60); POTASSIUM 4.6 mmol/L (3.5-5.1)
[2017-02-03 08:15] LABS: CREATININE SERUM 2.5 mg/dL (0.6-1.4)
[2017-02-03 15:50] LABS: BUN/CREATININE RATIO 27.27; CALCIUM SERUM 8.9 mg/dL (8.4-10.2); CREATININE SERUM 1.1 mg/dL (0.6-1.4); GLOM FILT RATE Estimated 69.1 mL/min (>60); POTASSIUM 4.2 mmol/L (3.5-5.1)
[2017-02-03 19:49] LABS: CALCIUM SERUM 8.6 mg/dL (8.4-10.2); GLOM FILT RATE Estimated 77.5 mL/min (>60); POTASSIUM 4.4 mmol/L (3.5-5.1)
[2017-02-04 05:47] LABS: HEMATOCRIT 37.5 % (38.0-50.0); HEMOGLOBIN 12.8 gm/dL (13.0-16.0); MEAN CELL VOLUME 94.6 FL (83-96); MEAN CORPUSCULAR HEMOGLOBIN 32.4 PG (28-34); MEAN CORPUSCULAR HGB CONC 34.3 g/dL (30-36); MEAN PLATELET VOLUME 7.3 FL (6.5-11.5); RED BLOOD COUNT 3.96 X10e (3.90-5.60); WHITE BLOOD COUNT 4.5 X10e3 (4.0-10.5)
[2017-02-04 07:01] LABS: CALCIUM SERUM 8.6 mg/dL (8.4-10.2); CREATININE SERUM 0.8 mg/dL (0.6-1.4); GLOM FILT RATE Estimated 92.5 mL/min (>60); POTASSIUM 4.1 mmol/L (3.5-5.1)
== END 2017-02-04 14:06 | disposition home or self-care (01) | DRG 699 ==
LOC: CED 19:10 → CEDOF 02-03 03:20 → C2A 02-03 03:20 → CEDOF 02-03 03:28 → CED 02-03 03:28 → CEDOF 02-03 04:52 → C2A 02-03 04:52
PROVIDERS: Emergency Medicine; Internal Medicine; Internal Medicine Nephrology
DX: N99.89 Other postprocedural complications and disorders of genitourinary system (principal); N17.9 Acute kidney failure, unspecified; E87.2 Acidosis; N13.30 Unspecified hydronephrosis; N13.8 Other obstructive and reflux uropathy; N40.1 Benign prostatic hyperplasia with lower urinary tract symptoms; R33.8 Other retention of urine; Z85.820 Personal history of malignant melanoma of skin; Z87.891 Personal history of nicotine dependence; E87.5 Hyperkalemia; Z80.6 Family history of leukemia; R31.9 Hematuria, unspecified; R31.0 Gross hematuria; Z79.82 Long term (current) use of aspirin; R93.422 Abnormal radiologic findings on diagnostic imaging of left kidney; R93.421 Abnormal radiologic findings on diagnostic imaging of right kidney; N32.89 Other specified disorders of bladder
CPT/HCPCS: 36415; 51702; 76770; 80048; 81003; 84153; 85025; 85027; 85610; 85730; 87086; 93005; 96360; 96361; 99291; J7060

== ENCOUNTER 2017-02-12 05:37 | Observation (INO) | payer MEDICARE, OTHER ==
--- NOTE | ~2017-02-12 | DS ---
Unit #: [id number] #: [id number] Patient: ADOLFO EUCEDA [id number] [address] [address] [id number] MR#: [id number] NAME: ADOLFO EUCEDA. ROOM: 46 Age: 67 Sex: M Admission Date: 02/12/2017 : 1950 Discharge Date: 02/13/2017 Attending Physician: Tyshawn Logan M.D. Primary Care Physician: Kristel Menezes M.D. DISCHARGE SUMMARY REASON FOR ADMISSION BPH. HOSPITAL COURSE This is a 67-year-old male admitted postoperatively after undergoing a transurethral resection of the prostate. Procedure was uneventful. He was admitted as a planned event to the postoperative surgical floor for continuous bladder irrigation. On postoperative day #1, his urine was clear on minimal CBI. This was discontinue and the urine remained clear. After Sawyer catheter was removed, he then voided successfully without difficulty. He was discharged home in stable condition on his regular home medications and Colace. He is to follow with Dr. Logan on with a basic metabolic profile prior. DISCHARGE DIET Regular. PHYSICAL EXAMINATION Exam is unremarkable. Dictated by... Evelio Trotter M.D. CHAS/riaz TD: 02/15/2017 12:53 JOB #: [id number] DISCHARGE SUMMARY Page 1 of 1 X Evelio Trotter MD X DISCHARGE SUMMARY
--- NOTE | ~2017-02-12 | OR ---
Unit #: [id number] #: [id number] Patient: ADOLFO EUCEDA [id number] [address] [place], [place] [address] [id number] Miriam MR#: [id number] NAME: ADOLFO EUCEDA. ROOM: Date of Procedure: 02/12/2017 Admission Date: 02/12/2017 Surgeon: Tyshawn Logan M.D. : 1950 Attending Physician: Tyshawn Logan M.D. Primary Care Physician: Kristel Menezes M.D. 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 PROCEDURE PERFORMED Cystoscopy and transurethral resection. ANESTHESIA General. INDICATIONS This 67-year-old man, who developed dramatically severe acute renal failure associated with bilateral hydronephrosis from postoperative urinary retention, was tried on optimal medical therapy and immediately failed and is scheduled for definitive management of his retention due to BPH. Note that he did have a PSA of 9.19 drawn after his acute presentation, to be followed upon, and this was discussed and simultaneous prostate biopsies deferred at this time. His prostate is benign to examination. PROCEDURE The patient was given preoperative antibiotics and satisfactory general anesthesia. He was positioned in the dorsal lithotomy, and his Sawyer catheter was removed. The 21 Marshallese rigid cystoscopy was introduced with the 30-degree lens and video noting normal urethra and bilobar obstructive BPH with a small forme fruste of median lobe on the left side, which was asymmetrically enlarged. The ureteral orifices were well back from the bladder neck. The bladder mucosa was normal other than mild catheter cystitis and mild trabeculation. The urethra was sounded easily to 30 Marshallese; thus, a 28 Marshallese resectoscope was used as continuous flow was not immediately available. I used noncontinuous flow for 15 minutes and then switched to continuous flow with a more straightforward resection at that point. I worked first on the left lobe, which was hypervascular, and took it largely down but found the contour somewhat confusing and irregular. I then resected the right lobe down. This was more straightforward and was nicely resected to capsular level as marked by numerous small prostate stones. Hemostasis on this side was very straightforward. I resected a small amount of tissue Unit #: [id number] #: [id number] Patient: ADOLFO EUCEDA anteriorly and a reasonable amount on the floor. I finished up completing the resection of the left lobe and, in doing so, encountered an opening close to bladder neck, which may have been seminal vesicle, but only a small amount of brownish material oozed out. This may have been some sort of a cystic formation also. Later in the resection, I appeared to violate prostate capsule mid laterally, but no venous structures were encountered, and no bleeding whatsoever. At this point all chips were evacuated from the bladder. The rollerball was applied circumferentially around the bladder neck at 5 and 7 o'clock, and the resectoscope was removed. The patient spontaneously voided a good stream with a full bladder. A 24 Marshallese 3-way catheter was placed with a catheter guide, its balloon inflated to 30 mL, and it was placed on continuous irrigation with clear return. Chips were sent in formalin. Estimated blood loss - 100 mL. Dictated by... Tyshawn Logan M.D. BRAYAN/marissa TD: 02/12/2017 11:26 JOB #: [id number] PROCEDURE OPERATIVE NOTE Page 1 of 1 X Tyshawn Logan MD X PROCEDURE OPERATIVE NOTE
[2017-02-12] MEDS ORDERED: ASPIRIN81 M2 PO (12:38)
[2017-02-12] MEDS ORDERED: FISH OIL 1,2001 CAP PO (13:30)
[2017-02-12] MEDS ORDERED: NON-ASPIRIN PA325 M1 PO (13:31)
[2017-02-12] MEDS ORDERED: MACROBID100 MG PO (13:32)
[2017-02-12] MEDS ORDERED: FLOMAX0.4 M1 PO (15:04)
[2017-02-12] MEDS ORDERED: GLUCOSAMINE &1 EAC1 PO (16:06)
[2017-02-12] MEDS ORDERED: VITAMIN D1000 UNI1 PO (16:06)
[2017-02-12] MEDS ORDERED: B COMPLEX1 EACH PO (16:07)
[2017-02-13 02:59] LABS: HEMATOCRIT 33.8 % (38.0-50.0); HEMOGLOBIN 11.3 gm/dL (13.0-16.0); MEAN CELL VOLUME 96.3 FL (83-96); MEAN CORPUSCULAR HEMOGLOBIN 32.1 PG (28-34); MEAN CORPUSCULAR HGB CONC 33.3 g/dL (30-36); MEAN PLATELET VOLUME 6.9 FL (6.5-11.5); RED BLOOD COUNT 3.51 X10e (3.90-5.60); RED CELL DISTRIBUTION WIDTH 12.9 % (11.0-15.5); WHITE BLOOD COUNT 6.5 X10e3 (4.0-10.5)
[2017-02-13 03:49] LABS: BUN/CREATININE RATIO 15.71; CALCIUM SERUM 8.6 mg/dL (8.4-10.2); CREATININE SERUM 0.7 mg/dL (0.6-1.4); GLOM FILT RATE Estimated 97.7 mL/min (>60)
[2017-02-13] MEDS ORDERED: DOCUSATE SODIU100 MG PO (11:45)
== END 2017-02-13 12:47 | disposition home or self-care (01) ==
LOC: CSUR 05:37 → CPACUOF 09:47 → CSUR 10:30 → C4C 13:23 → CPACUOF 13:23 → C4C 02-13 12:47
PROVIDERS: Urology
PROC: 0VT08ZZ Resection of Prostate, Via Natural or Artificial Opening Endoscopic (ICD-10-PCS; principal; 2017-02-12 07:30)
DX: N40.1 Benign prostatic hyperplasia with lower urinary tract symptoms (principal); N13.8 Other obstructive and reflux uropathy; N21.0 Calculus in bladder; N42.0 Calculus of prostate; N32.89 Other specified disorders of bladder; N30.90 Cystitis, unspecified without hematuria; R33.9 Retention of urine, unspecified; R06.83 Snoring; Z79.899 Other long term (current) drug therapy; Z87.891 Personal history of nicotine dependence; Z98.890 Other specified postprocedural states; Z85.820 Personal history of malignant melanoma of skin
CPT/HCPCS: 80048; 82365; 85027; 88300; 88305; 96374; 96376; G0378; J0690; J1170; J2250; J2550; J3010